=== PATIENT | male | born 1930 | race African-American/Black ===

== ENCOUNTER 2018-04-05 19:29 | Emergency (ER) | payer MEDICARE, MEDICAID ==
[~2018-04-05] VITALS: Ht 180.3 cm; Wt 82.7 kg
[2018-04-05] MEDS ORDERED: WARF5 PO (19:58)
[2018-04-05] MEDS ORDERED: METF500T6 PO (19:58)
[2018-04-05 20:03] LABS: GLUCOSE,POINT OF CARE 98 MG/DL (70-110)
[2018-04-05 20:36] LABS: BASOPHILS % (AUTO) 1.2 % (0.0-2.0); EOSINOPHILS % (AUTO) 5.4 % (1.0-6.0); HEMATOCRIT 38.3 % (41-53); HEMOGLOBIN 12.9 g/dL (13.5-17.5); LYMPHOCYTES # (AUTO) 1.2 K/uL (1.0-4.8); LYMPHOCYTES % (AUTO) 24.3 % (22.0-44.0); MEAN CORPUSCULAR HEMOGLOBIN 29.1 pg (26.0-34.0); MEAN CORPUSCULAR HGB CONC 33.7 G/dL (31.0-37.0); MEAN CORPUSCULAR VOLUME 86 fL (80-100); MONOCYTES # (AUTO) 0.6 K/uL (0.1-1.0); MONOCYTES % (AUTO) 12.6 % (2.0-9.0); NEUTROPHILS # (AUTO) 2.9 K/uL (1.8-7.7); NEUTROPHILS % (AUTO) 56.5 % (40.0-70.0); PLATELET COUNT (AUTO) 174 K/uL (150-450); RED BLOOD CELL COUNT(AUTO) 4.44 MIL/uL (4.50-5.90); RED CELL DISTRIBUTION WIDTH 16.2 % (11.5-14.5)
[2018-04-05] MEDS ORDERED: POVIDONE-IODINE 10% 15 ML SOLUTION UD TP ONE (21:00)
[2018-04-05] MEDS ORDERED: LIDOCAINE HCL 1% 10 ML VIAL INJ ONE (21:00)
[2018-04-05] MEDS ORDERED: IBUPROFEN 800 MG TABLET PO ONE (21:00)
[2018-04-05] MEDS ORDERED: BUPIVACAINE HCL/PF 0.25% 10 ML VIAL INJ ONE (21:15)
[2018-04-05] MEDS ORDERED: BUPIVACAINE HCL 0.25% 50 ML VIAL INJ ONE (21:15)
[2018-04-05 21:19] LABS: INR 1.9 (0.9-1.1); PROTHROMBIN TIME 19.4 SEC (9.4-11.6)
[2018-04-05 21:49] VITALS: BP 108/77
== END 2018-04-05 22:08 | disposition home or self-care (01) ==
LOC: EMS 19:29
DX: S61.412A Laceration without foreign body of left hand, initial encounter (principal); I10 Essential (primary) hypertension; E11.9 Type 2 diabetes mellitus without complications; I25.10 Atherosclerotic heart disease of native coronary artery without angina pectoris; W45.8XXA Other foreign body or object entering through skin, initial encounter; Y93.89 Activity, other specified; Y92.89 Other specified places as the place of occurrence of the external cause; Y99.8 Other external cause status
CPT/HCPCS: 12002; 36415; 82962; 85025; 85610; 85730; 99284; J3490